=== PATIENT | male | born 1950 | race Caucasian/White ===

== ENCOUNTER → 2016-11-13 | Outpatient (CLI) | payer OTHER, MEDICARE ==
[~2016-11-13] MED LIST: GADOBUTROL 10 ML VIAL IVP ONE
== END ==
LOC: FIMAGING 13:53
DX: R22.2 Localized swelling, mass and lump, trunk (principal); M51.26 Other intervertebral disc displacement, lumbar region; M51.36 Other intervertebral disc degeneration, lumbar region; M54.9 Dorsalgia, unspecified
CPT/HCPCS: 72157; 72158; A9585

== ENCOUNTER → 2016-11-25 | Outpatient (CLI) | payer OTHER, MEDICARE ==
[~2016-11-25] MED LIST changes: -GADOBUTROL 10 ML VIAL IVP ONE; +LIDOCAINE 1% 300 MG/30 ML SDV ONE
== END ==
LOC: FIMAGING 09:24
PROC: 0J9730Z Drainage of Back Subcutaneous Tissue and Fascia with Drainage Device, Percutaneous Approach (ICD-10-PCS; principal; 2016-11-25)
DX: M79.81 Nontraumatic hematoma of soft tissue (principal)

== ENCOUNTER → 2016-12-03 | Outpatient (CLI) | payer OTHER, MEDICARE | LOC: FIMAGING 14:06 | PROVIDERS: ATTEND Radiology Diagnostic Radiology | DX: G96.0 Cerebrospinal fluid leak (principal) ==

== ENCOUNTER 2017-01-07 07:05 | Day surgery (SDC) | payer OTHER, MEDICARE ==
--- NOTE | 2017-01-06 18:20 | GHP ---
[f rep st] PREOP HISTORY AND PHYSICAL DATE OF ADMISSION: 01/07/2017 HISTORY OF PRESENT ILLNESS: The patient is a 66-year-old male, who had a lipoma excised from his lef t lumbar area with an outside surgeon about a year ago. He had a drain at that time and says it [place] me clogged. The patient reports developing an uncomfortable fluid collection that was evaluated by Sarita ENGLAND. He then had ultrasound-guided percutaneous drainage in Interventional Radiology, at which time a YOHANA drain was left in place. He continued to have pain and pressure after drain removal and so then was referred to us. Since then, he has had an incision and drainage with a drain in place with Dr. Nair. The drain was in place for about 2 weeks. It was removed and his has been helping him probe the wound with a sterile Q-tip. Lately it has become difficult to probe, however, there was still a fluid pocket. We discussed options including opening the wound further versus surgical excision, and due to the chron icity of the situation, the patient has opted for excision in the operating room. Risks and options have been discussed including, but not limited to, bleeding, infection, injury to n erve, damage to surrounding structures, recurrent seroma, need for further surgery and other problems , and he requests to proceed. PAST MEDICAL HISTORY/SURGICAL HISTORY: Reviewed, includes lumbar spine surgery with no hardware repl acements, lumbar lipoma removal, chronic seroma as outlined above. MEDICATIONS: Include Robaxin, fenofibrate, and allopurinol. ALLERGIES: Penicillin. SOCIAL HISTORY: Patient is . He recently returned from [place]. He does not smok e. REVIEW OF SYSTEMS: Negative aside from HPI. PHYSICAL EXAMINATION: GENERAL: Reveals a well-developed, well-nourished 66-year-old male, alert and oriented x3, and in no acute distress. HEENT: Normocephalic, atraumatic. CHEST: Clear to auscult ation bilaterally. CARDIAC: Regular rate and rhythm without murmurs. ABDOMEN: Soft, nontender. E XTREMITIES: Warm and dry without edema. BACK: A less than 1 cm opening in the left lumbar area. D ifficult, but possible, to probe with a sterile Q-tip with release of approximately 10 mL of serous f luid, very clear and muro in color. IMPRESSION: This is a 66-year-old male with a chronic seroma of his back. PLAN: To proceed with an excision of chronic seroma cavity. Risks and options discussed and he requ ests to proceed. /[id number]/MODL
--- NOTE | 2017-01-07 06:51 | PDHPUP ---
History & Physical Update H&P update statement: This history and physical update is based on an assessment of the patient which was completed after admission or registration (within 24 hours), but prior to the surgery/procedure. H&P changes: no changes
[2017-01-07] MEDS ORDERED: CLINDAMYCIN 900 MG/DEXTROSE 50 ML IV ONE (07:32)
[2017-01-07] MEDS ORDERED: BUPIVACAINE 0.5% 30 ML SDV ONE (07:32)
[2017-01-07] MEDS ORDERED: LR 1,000 ML IV ONE (07:50)
[2017-01-07] MEDS ORDERED: LIDOCAINE 1% 2 ML INJ ID PRN (07:50)
--- NOTE | 2017-01-07 08:30 | PDANEPAE ---
ANE History of Present Illness 66 YO m w chronic lumbar seroma here for excision ANE Past Medical History - Cardiovascular History Hx Hypertension: No Hx Arrhythmias: No Hx Chest Pain: No Hx Coronary Artery / Peripheral Vascular Disease: No Hx CHF / Valvular Disease: No Hx Palpitations: No Cardiovascular History Comment: HLD - Pulmonary History Hx COPD: No Hx Asthma/Reactive Airway Disease: No Hx Recent Upper Respiratory Infection: No Hx Oxygen in Use at Home: No Hx Sleep Apnea: No Sleep Apnea Screening Result - Last Documented: Negative - Neurologic History Hx Cerebrovascular Accident: No Hx Seizures: No Hx Dementia: No - Endocrine History Hx Diabetes: No - Renal History Hx Renal Disorders: No - Liver History Hx Hepatic Disorders: No - Neurological & Psychiatric Hx Hx Neurological and Psychiatric Disorders: No - Cancer History Hx Cancer: Yes Cancer History Comment: colon ca - Congenital Disorder History Hx Congenital Disorders: No - GI History Hx Gastrointestinal Disorders: No - Other Health History Other Health History: eczema face. gout - Chronic Pain History Chronic Pain: No - Surgical History Prior Surgeries: lypoma removed 2014 ANE Review of Systems Review of Systems: - Exercise capacity METS (RN): 4 METS ANE Patient History - Allergies Allergies/Adverse Reactions: Penicillins Allergy (Unknown, Verified 10/07/15 15:57) - Home Medications Home Medications: Allopurinol [Allopurinol 300 MG (RX)] 300 mg PO DAILY 06/14/12 [Last Taken 06/14] FENOFIBRATE 160 mg PO 10/07/15 [Last Taken Unknown] Methocarbamol [Robaxin 750 mg (*)] 750 mg PO 10/07/15 [Last Taken Unknown] - NPO status NPO Status: no food or drink >8 hours NPO Since - Liquids (Date): 01/06/17 NPO Since - Liquids (Time): 22:00 NPO Since - Solids (Date): 01/06/17 NPO Since - Solids (Time): 07:15 - Anes Hx Anes Hx: no prior problems - Smoking Hx Smoking Status: Former smoker - Alcohol Use Alcohol Use: Occasionally - Family Anes Hx Family Anes Hx: none Family Hx Anesthesia Complications: none ANE Labs/Vital Signs - Vital Signs Blood Pressure: 137/91 Heart Rate: 72 Respiratory Rate: 16 O2 Sat (%): 92 Height: 175.26 cm Weight: 71.214 kg ANE Physical Exam - Airway Neck exam: decreased ROM Mallampati Score: Class 2 Mouth exam: painter - Pulmonary Pulmonary: no respiratory distress, clear to auscultation - Cardiovascular Cardiovascular: regular rate and rhythym, no murmur, rub, or gallop - ASA Status ASA Status: II ANE Anesthesia Plan Anesthesia Plan: general endotracheal anesthesia
[2017-01-07] MEDS ORDERED: MIDAZOLAM 2 MG/2 ML VIAL IVP ONE (08:31)
[2017-01-07] MEDS ORDERED: fentaNYL 100 MCG/2 ML INJ ONE (08:37)
[2017-01-07] MEDS ORDERED: PROPOFOL 200 MG/20 ML VIAL ONE ×2 (08:37→08:38)
[2017-01-07] MEDS ORDERED: LIDOCAINE 2% 100 MG/5 ML SYR ONE (08:38)
[2017-01-07] MEDS ORDERED: ROCURONIUM 50 MG/5 ML VIAL ONE (08:38)
[2017-01-07] MEDS ORDERED: THROMBIN (BOVINE) 20,000 UNIT SPRAY TP ONE (09:32)
[2017-01-07] MEDS ORDERED: fentaNYL 100 MCG/2 ML INJ IVP PRN (10:03)
[2017-01-07] MEDS ORDERED: ONDANSETRON 4 MG/2 ML VIAL IVP PRN (10:03)
[2017-01-07] MEDS ORDERED: NALOXONE HCL 0.4 MG/ML INJ IVP PRN (10:03)
[2017-01-07] MEDS ORDERED: ACETAMINOPHEN 500 MG TAB PO PRN (10:03)
[2017-01-07] MEDS ORDERED: HYDROmorphONE/DILAUDID 1 MG/ML INJ IVP PRN (10:03)
[2017-01-07] MEDS ORDERED: OXYCODONE/APAP 5/325 TAB PO PRN (10:03)
[2017-01-07 11:16] VITALS: BP 124/79; PULSE 73
[2017-01-07] MEDS ORDERED: OXYCODONE/APAP 5/325 TAB ONE (11:39)
--- NOTE | 2017-01-07 11:51 | POSTANESTH ---
Post Anesthetic Evaluation Cardiovascular Status: Normal, Stable, Similar to Pre-Op Cond Respiratory Status: Normal, Stable, Similar to Pre-op Cond. Level of Consciousness/Mental Status: Can Participate in Eval, Alert and Oriented Pain Control: Adequate, Prn Tx Ordered Nausea/Vomiting Control: Adequate, Prn Tx Ordered Complications Possibly Related to Anesthesia: None Noted
[2017-01-07 13:41] VITALS: RESP 16; TEMP 98.8
[2017-01-07 13:43] VITALS: O2SAT 95
== END 2017-01-07 12:21 | disposition home or self-care (01) ==
LOC: FSGY 07:05
PROVIDERS: ATTEND Surgery
PROC: 0J970ZX Drainage of Back Subcutaneous Tissue and Fascia, Open Approach, Diagnostic (ICD-10-PCS; principal; 2017-01-07 08:45)
DX: L76.34 Postprocedural seroma of skin and subcutaneous tissue following other procedure (principal); Z88.1 Allergy status to other antibiotic agents; E78.5 Hyperlipidemia, unspecified
CPT/HCPCS: J2001; J2250; J2704; J3010